=== PATIENT | male | born 2000 | race Caucasian/White ===

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

== ENCOUNTER 2021-01-06 11:06 | Emergency (ER) | payer MEDICAID, OTHER ==
[~2021-01-06] VITALS: Ht 180.3 cm; Wt 105.7 kg
[2021-01-06 11:09] VITALS: BP 99/59
--- NOTE | 2021-01-06 11:19 | NUR ---
PATIENT AMBULATED WITH WATER RESTORATION TECHNICIAN TO BED 8.
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
--- NOTE | 2021-01-06 11:37 | NUR ---
Patient taken to CT scan via wheelchair by teri. Accompanied by caregiver.
--- NOTE | 2021-01-06 11:43 | NUR ---
Dr. Hines is evaluating patient at bedside.
--- NOTE | 2021-01-06 11:43 | NUR ---
Patient returned from CT scan.
[2021-01-06] MEDS ORDERED: LORazepam 2 MG/ML VIAL IM ONE (11:45)
--- NOTE | 2021-01-06 12:12 | NUR ---
Contacted CT via telephone, advised caregiver feels patient is calm and cooperative at this time. Caregiver states it is better for pt if he were to ambulate to CT with his assistance. Patient demonstrated steady/even gait x 10 steps.
--- NOTE | 2021-01-06 12:15 | NUR ---
Patient ambulated to CT with assistance of caregiver with steady/even gait.
--- NOTE | 2021-01-06 12:25 | NUR ---
Patient ambulated/returned from CT accompanied by caregiver. aviation survival technician states only able to complete CT Head; unable to complete CT Facial due to patient becoming uncooperative.
--- NOTE | 2021-01-06 12:30 | NUR ---
Dr. Hines made aware by sewing techniques demonstrator at ER bedside of unable to scan CT Facial.
[2021-01-06] MEDS ORDERED: IBUP-2213 PO (13:09)
[2021-01-06 14:01] VITALS: BP 102/57
--- NOTE | 2021-01-06 14:01 | NUR ---
Patient discharged with v/s stable. Written and verbal after care instructions given and explained. Patient alert, oriented and verbalized understanding of instructions. Ambulatory with by caregiver. All questions addressed prior to discharge. ID band removed. Patient advised to follow up with PMD. Rx of Ibuprofen given. Patient educated on indication of medication including possible reaction and side effects. Opportunity to ask questions provided and answered.
== END 2021-01-06 14:01 | disposition home or self-care (01) ==
LOC: MED 11:06
DX: S00.11XA Contusion of right eyelid and periocular area, initial encounter (principal); S09.90XA Unspecified injury of head, initial encounter; F84.0 Autistic disorder; Z88.8 Allergy status to other drugs, medicaments and biological substances; W51.XXXA Accidental striking against or bumped into by another person, initial encounter; Y93.89 Activity, other specified; Y92.89 Other specified places as the place of occurrence of the external cause; Y99.8 Other external cause status
CPT/HCPCS: 70450; 96372; 99284; J2060